=== PATIENT | male | born 1940 | race Caucasian/White ===

== ENCOUNTER 2017-06-10 06:10 | Day surgery (SDC) | payer MEDICARE ==
[~2017-06-10 06:10] MED LIST: Buffered Lidocaine 0.9% SYRIN* 5 ML/SYR SYRINGE INTRADERM ONE; NS 0.9% 1000 ML* 1,000 ML IV SCH
[2017-06-10] MEDS ORDERED: ceFAZolin 2 GM PREMIX (*) 2 GM/50 ML BAG IVPB ONE (06:54)
[2017-06-10] MEDS ORDERED: Methylene Blue 0.5 %* 50 MG/10 ML AMP IV ONE (07:17)
[2017-06-10] MEDS ORDERED: Lidocain 1% EPI 1:100,000 * 30 ML MDV ONE ×2 (07:17→07:19)
[2017-06-10] MEDS ORDERED: Mineral Oil Sterile, TOPICAL* 25 ML BTL ONE (07:18)
[2017-06-10] MEDS ORDERED: Bupivacaine 0.25% SDV* 30 ML ONE (07:19)
[2017-06-10] MEDS ORDERED: Midazolam* 1 MG/ML 2 ML VIAL (2 MG) ONE ×2 (07:21→07:43)
[2017-06-10] MEDS ORDERED: Lidocaine 2% PF * 5 ML VIAL ONE (07:44)
[2017-06-10] MEDS ORDERED: Propofol* 10 MG/ML 20 ML BTL IV PUSH ONE (07:44)
[2017-06-10] MEDS ORDERED: Famotidine IV* 10 MG/ML 2 ML (20 mg) ONE (07:44)
[2017-06-10] MEDS ORDERED: Naloxone* 0.4 MG/ML 1 ML VIAL IV PRN (08:45)
[2017-06-10] MEDS ORDERED: DiMENhydriNATE IV* 50 MG/ML VIAL IV PUSH PRN (08:45)
[2017-06-10] MEDS ORDERED: Acetaminophen TAB* 325 MG PO PRN (08:45)
[2017-06-10] MEDS ORDERED: HYDROcodone/ACETAMIN 5-325 MG* 1 TAB PO PRN ×2 (08:45)
[2017-06-10 09:48] VITALS: BP 110/69
== END 2017-06-10 09:50 | disposition home or self-care (01) ==
LOC: OR 06:10
PROVIDERS: ATTEND Plastic Surgery
DX: C44.41 Basal cell carcinoma of skin of scalp and neck (principal); Z79.01 Long term (current) use of anticoagulants; I73.9 Peripheral vascular disease, unspecified; Z85.46 Personal history of malignant neoplasm of prostate; I10 Essential (primary) hypertension; I48.2 Chronic atrial fibrillation; Z87.891 Personal history of nicotine dependence; Z85.828 Personal history of other malignant neoplasm of skin
CPT/HCPCS: 88305; 88331; 88332; A9270-GY; J0690; J2250; J2704

== ENCOUNTER → 2017-08-18 07:43 | Day surgery (SDC) | payer MEDICARE ==
[~2017-08-18 07:43] MED LIST changes: +Acetaminophen TAB* 325 MG PO PRN; -Buffered Lidocaine 0.9% SYRIN* 5 ML/SYR SYRINGE INTRADERM ONE; +Heparin 2 UNITS/ML IVPREMIX* 2,000 ML IV ONE; +Heparin(*) 1000 UNIT/ML 10 ML VIAL CATH LAB IV ONE; +Iodixanol* (CONTRAST) 320 MG/ML 100 ML SDV ONE; +Lidocaine 1% INJ* 10 MG/ML 30 ML SDV ONE; +Midazolam* 1 MG/ML 10 ML VIAL (10 MG) ONE; +VERAPAMIL 2.5 MG/ML 2 ML VIAL ** 5 mg/2 ml ONE; +fentaNYL* 50 MCG/ML 2 ML VIAL (100 MCG VIAL) ONE; +nitroGLYCERIN DRIP* 25,000 MCG/250 ML BTL ONE
[2017-08-18 09:15] LABS: ABS Basophils 0 10^3/ul (0-0.2); ABS Eosinophils 0.1 10^3/ul (0-0.6); ABS Lymphocytes 1.3 10^3/ul (1.0-4.8); ABS Monocytes 0.9 10^3/ul (0-0.8); ABS Neutrophils 1.5 10^3/ul (1.5-7.7); ABS Nucleated RBC 0 10^3/ul; Eosinophil % 1.7 % (0-6); Hematocrit 46 % (42-52); Hemoglobin 15.5 g/dl (14.0-18.0); Mean Corpuscular HGB Conc 34 g/dl (31-36); Mean Corpuscular Hemoglobin 31 pg (27-31); Mean Corpuscular Volume 94 fL (80-94); Mean Platelet Volume 7.7 um3 (7.4-10.4); Nucleated Red Blood Cells % 0.1; Platelet Count 138 10^3/ul (150-450); Red Blood Count 4.94 10^6/ul (4.0-5.4); Red Cell Distribution Width 15 % (10.5-15); White Blood Count 3.8 10^3/ul (3.5-10.8)
[2017-08-18 09:23] LABS: INR 1.05 (0.77-1.02)
[2017-08-18 09:34] LABS: EGFR Non-African American 54.7 (>60)
[2017-08-18 13:03] VITALS: BP 112/62
--- NOTE | 2017-08-19 13:15 | CATH ---
CC: Dr. Guzman. CARDIAC CATHETERIZATION NOTE: DATE OF PROCEDURE: 08/18/17 PROCEDURE: Cardiac catheterization including coronary angiography, left heart catheterization, left ventriculogram. INDICATION: Ventricular tachycardia. The patient is a 77-year-old gentleman with a history of chronic atrial fibrillation who has frequent ventricular ectopy and runs of ventricular tachycardia. The patient was seen by an custom van converter and was recommended for a cardiac catheterization to rule out coronary artery disease. DESCRIPTION OF PROCEDURE: The patient was brought to the cardiac catheterization lab in a fasting state. Informed consent had been obtained prior to the procedure. All labs were reviewed. The patient had been off his Coumadin for 3 days. The patient was placed supine in the catheterization table. His right wrist area was prepped and draped in the usual fashion. 1% lidocaine was used for local anesthesia. Using a Seldinger technique, the radial artery was entered and a guidewire was placed. Over the guidewire, a 6- Latvian hydrophilic sheath was placed. The patient had an infusion of heparin, nitroglycerin, and verapamil. The patient underwent cardiac catheterization using a 6-Latvian TIG catheter and a 5- Latvian angled pigtail catheter. At the end of the procedure, all sheaths and catheters were removed. The patient tolerated the procedure well, no complications. A total of 85 cc of Visipaque dye was used. A total of 8.4 minutes of fluoro time was used. FINDINGS: 1. Left main artery: The left main was normal in size. It bifurcated into the LAD and circumflex. There was no evidence of stenosis. 2. Left anterior descending artery: The LAD was normal in size. It gave off 3 diagonal vessels. There is no evidence of stenosis. 3. Left circumflex artery: The circumflex artery was normal in size. It gave off 1 large obtuse marginal branch. There was no evidence of stenosis. 4. Right coronary artery: The RCA was a large, dominant vessel, it gave off PDA, there was no evidence of stenosis. 5. Left ventriculogram: The left ventricle was normal in size and systolic function. Estimated ejection fraction 65%. There was no focal wall motion abnormalities. There was 3+ mitral regurgitation, but I think this was catheter induced mitral valve regurgitation. The mitral valve and ascending aorta were normal. IMPRESSION: 1. Normal LV size and systolic function. 2. A 3+ mitral regurgitation that was likely catheter induced MR. 3. Normal coronary arteries. 4. Successful radial cardiac catheterization. RECOMMENDATIONS: The patient will continue on maximum medical therapy. He will follow up with Dr. Guzman. [id number]/[facility] #: [id number] CICI
== END | disposition home or self-care (01) ==
LOC: CHICATH 07:43
PROVIDERS: ATTEND Specialist
DX: I34.0 Nonrheumatic mitral (valve) insufficiency (principal); I47.2 Ventricular tachycardia; I48.91 Unspecified atrial fibrillation; Z79.01 Long term (current) use of anticoagulants; Z79.899 Other long term (current) drug therapy
CPT/HCPCS: 36415; 80053; 85025; 85610; 93458; 99156; 99157; J1644; J2250; J3010

== ENCOUNTER 2018-06-17 06:52 | Day surgery (SDC) | payer MEDICARE ==
--- NOTE | 2018-05-22 10:12 | HP ---
CC: Dr. Kemi Myers * HISTORY AND PHYSICAL: DATE OF PLANNED ADMISSION AND SURGERY: 06/17/18 HISTORY OF PRESENT ILLNESS: Mr. Lazcano is a 77-year-old while male who is admitted with recurrent episodes of gross hematuria, abnormalities of the right ureter on CT, for cystoscopy, bilateral retrograde pyelographies, possible bilateral ureteroscopies and bilateral ureteral stents insertion. I had followed Mr. Lazcano in the past because of history of prostate carcinoma. In 2002, he underwent an uncomplicated radical retropubic prostatectomy. The pathology showed stage II [place] 6 disease. He has done very well without any evidence of recurrent disease and his PSA has been undetectable. I last saw him in my office for his follow up in 2003. The patient had been followed by Dr. Myers, who had been obtaining periodic PSA's and they have remained undetectable. For the last 2 years, the patient has been having on and off episodes of right flank pain. He assumed they were caused by renal calculi and the episodes were not severe enough for him to seek any medical attention. About 3 months ago, he started having on and off episodes of gross hematuria, they were mostly painless; however, some of them were associated with mild right flank pain. He did not have any episodes of acute renal colic. The episodes of hematuria were not associated with any changes in his voiding or symptoms of urinary tract infections. The patient has been on anticoagulation with warfarin because of atrial fibrillation. I saw him in my office recently for work up of the gross hematuria. KUB showed bilateral small renal calculi. CT urogram showed small nonobstructing bilateral renal calculi. There was a moderate degree of thickening of the distal right ureter, but no filling defect noted. There was also slight dilatation of the distal left ureter, but this could have been peristalsis. There were no obvious abnormal filling defects in the collecting systems or in the ureters and no parenchymal renal masses. The patient then had an office cystoscopy, which was normal showing no suspicious bladder lesions. Because of the above history and findings, and the abnormal appearing ureters on CT urogram, he is admitted for the above procedure. PAST MEDICAL HISTORY: The patient has atrial fibrillation for which he is maintained on warfarin and on metoprolol 50 mg twice a day. 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 He has not had any embolic phenomena. In August 2017, he underwent cardiac catheterization, showing no coronary artery disease. I am including the last note from his livestock farm manager, Dr. Guzman. The patient had gone off the warfarin in the past for minor surgeries. He is hypertensive, maintained on lisinopril-HCTZ 20-12.5 mg daily. He has a chronic back pain and occasionally takes hydrocodone as needed. He was a chronic heavy smoker of 2 packs per day for a total of 40 years and he stopped in 1998. Alcohol. The patient consumes about 3 glasses of wine per day. He denies any allergies to medications. He denies any shortness of breath and seems to have good exercise tolerance. FAMILY HISTORY: Negative. PHYSICAL EXAMINATION GENERAL: He is a pleasant healthy-looking white male who looks good for his age. VITAL SIGNS: Blood pressure 140/80, pulse of 60. HEART: Regular and rhythmic. No murmurs. LUNGS: Clear. ABDOMEN: Soft. No masses, no tenderness, and no CVA tenderness. EXTERNAL GENITALIA: Normal. IMPRESSION: 1. Recurrent episodes of gross hematuria in a patient on warfarin for atrial fibrillation, with past history of heavy chronic smoking, with negative cystoscopy and CT Urogram showing abnormalities mostly in the distal right ureter, possibly in the left distal ureter. 2. Non-obstructing bilateral renal calculi. 3. Status post radical prostatectomy for prostate carcinoma with good result and no evidence of recurrent disease. 4. Hypertension, atrial fibrillation. PLAN: Plan is for cystoscopy, bilateral retrograde pyelographies, possible bilateral ureteroscopies, and stents insertion. I discussed the above plans in detail with the patient. All his questions were answered. [id number]/[facility] #: [id number] CICI
[~2018-06-17 06:52] MED LIST changes: -Acetaminophen TAB* 325 MG PO PRN; +Buffered Lidocaine 1% SYRIN* 1 ML/SYRINGE INTRADERM ONE; +Dexamethasone IV* 4 MG/ML 1 ML (4 MG) IV SLOW PU ONE; +Famotidine TAB* 20 MG PO ONE; -Heparin 2 UNITS/ML IVPREMIX* 2,000 ML IV ONE; -Heparin(*) 1000 UNIT/ML 10 ML VIAL CATH LAB IV ONE; -Iodixanol* (CONTRAST) 320 MG/ML 100 ML SDV ONE; +Lactated Ringers 1000 ML Bag* 1,000 ML IV SCH; -Lidocaine 1% INJ* 10 MG/ML 30 ML SDV ONE; -Midazolam* 1 MG/ML 10 ML VIAL (10 MG) ONE; -NS 0.9% 1000 ML* 1,000 ML IV SCH; -VERAPAMIL 2.5 MG/ML 2 ML VIAL ** 5 mg/2 ml ONE; -fentaNYL* 50 MCG/ML 2 ML VIAL (100 MCG VIAL) ONE; -nitroGLYCERIN DRIP* 25,000 MCG/250 ML BTL ONE
[2018-06-17] MEDS ORDERED: Famotidine TAB* 20 MG ONE (07:30)
[2018-06-17] MEDS ORDERED: Dexamethasone IV* 4 MG/ML 1 ML (4 MG) ONE (07:30)
[2018-06-17] MEDS ORDERED: cefTRIAXone(*) 2 GM ADDV.VIAL IVPB ONE (07:30)
[2018-06-17] MEDS ORDERED: Midazolam* 1 MG/ML 2 ML VIAL (2 MG) ONE (08:32)
[2018-06-17] MEDS ORDERED: Lidocaine 2% PF * 5 ML VIAL ONE (08:32)
[2018-06-17] MEDS ORDERED: fentaNYL* 50 MCG/ML 2 ML VIAL (100 MCG VIAL) ONE (08:32)
[2018-06-17] MEDS ORDERED: Propofol* 10 MG/ML 20 ML BTL ONE (08:32)
[2018-06-17] MEDS ORDERED: Iohexol 180 (CONTRAST) 10 ML SDV IV ONE (09:22)
[2018-06-17] MEDS ORDERED: EPHEDrine (Pressors)* 50 MG/ML VIAL ONE (09:58)
[2018-06-17] MEDS ORDERED: Phenylephrine 40 MCG/ML SYRINGE ONE (09:58)
[2018-06-17] MEDS ORDERED: Ondansetron INJ* 2 MG/ML VIAL ONE (10:09)
[2018-06-17 11:25] VITALS: BP 140/97
--- NOTE | 2018-06-17 13:38 | OP ---
CC: Dr. Kemi Myers OPERATIVE REPORT: DATE OF OPERATION: 06/17/18 DATE OF : 36 SURGEON: Jak Apodaca MD ANESTHESIOLOGIST: Dr. Alejo. ANESTHESIA: General. PRE-OP DIAGNOSES: 1. Recurrent episodes of gross hematuria. 2. Rule out distal right ureteral tumor. POST-OP DIAGNOSIS: Distal right ureteral calculus (7 mm). OPERATIVE PROCEDURE: 1. Cystoscopy. 2. Bilateral retrograde pyelographies. 3. Washings from distal right ureter. 4. Right ureteroscopy, laser lithotripsy, and right ureteral stent insertion (6- Brazilian). INDICATION FOR PROCEDURE: Mr. Lazcano is a 77-year-old male who had undergone radical prostatectomy for prostate carcinoma in 2002. Over the last 2 years, the patient has been having on and off episo abram of right flank pain, which the patient attributed to episodes of passage of renal calculi. Two t o 3 months ago, he started having recurrent episodes of gross painless hematuria, some of them associ ated with mild right flank pain. The patient gives history of chronic heavy smoking. Office cystosc opy was negative. CT urogram showed a thickening of the distal right ureter suspicious for a uretera l lesion. There were bilateral small renal calculi noted. No ureteral calculus was seen. Because of the above history and finding, the patient was admitted for the above procedures. PATHOLOGY: At cystoscopy, the penile and bulbar urethrae looked normal. 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 The bladder neck was open without any contracture. Examination of the bladder showed normal mucosa. There were no suspicious bladder lesions seen. No calculi or diverticula were noted. The ureteral orifices looked normal. Upon left retrograde pyelography, there was no evidence of any dilatation of the left ureter or any a bnormal filling defects in the ureter or in the collecting system. Upon right retrograde pyelography, there was partial narrowing of the ureter about 4 cm above the lev el of the orifice. This is the same area that looked thickened on the CT urogram. There was mild di latation of the ureter and of the collecting system proximal to that area. No abnormal filling defec ts were noted in the ureter or the collecting systems. Upon right ureteroscopy, there was a 7-mm calculus noted in the distal ureter at the site of the abov e described partial narrowing and edema. The calculus had the gross appearance of a calcium oxylate stone. Ureteroscopy into the proximal ureter showed no pathology. DESCRIPTION OF PROCEDURE: After successful general anesthesia, the patient was placed in the lithoto my position and was prepped and draped for cystoscopy. Cystoscopy was performed. The bladder was car efully inspected and the above findings were noted. A flexible tip guidewire was then introduced into the left ureteral orifice. A size 5-Brazilian open-en ded catheter was fed on top of the guidewire and positioned in the distal ureter. Retrograde pyelogr aphy was then performed demonstrating the whole ureter and collecting system and showing no abnormali ties. Attention was then directed to the right side. Retrograde pyelography was then performed and the abo ve findings were noted. The open-ended catheter was then positioned in the distal ureter at the site of the ureteral narrowin g and washings were obtained from that area and sent for cytology. The guidewire was then reintroduced and positioned inside the renal pelvis. A size 6.5 semirigid ure teroscope was introduced inside the bladder. A flexible tip basket was introduced through the port o f the ureteroscope and its flexible tip was then introduced into the right ureter alongside the guide wire. That allowed the atraumatic introduction of the ureteroscope into the ureter. The ureteroscop e was advanced and the calculus was identified. The calculus was then engaged in the basket to avoid its proximal migration. A size 550 micron laser fiber was then introduced into the other port of th e ureteroscope and the stone was broken in several fragments using the laser energy. Care was taken not to damage the ureteral wall. The stone fragments were then extracted with the basket. Ureteroscopy showed no residual stone fragm ents and then intact ureteral wall. Right retrograde pyelography was again performed and the size 6-Brazilian stent was placed with the prox imal end coiling in the renal pelvis and the distal end coiling inside the bladder. There was good d rainage of contrast from the kidney and no extravasation. The patient tolerated the procedure well and left the operating room in good condition. The plan is to leave the stent in place for about 1 week. It will be removed in the office under loc al anesthesia. The cause of the recurrent episodes of gross hematuria and of the abnormal findings on the CT urogram can all be explained on the basis of the right ureteral calculus. [id number]/[facility] #: [id number]
== END 2018-06-17 11:26 | disposition home or self-care (01) ==
LOC: OR 06:52
PROVIDERS: ATTEND Urology
DX: N20.1 Calculus of ureter (principal); R31.0 Gross hematuria; Z85.46 Personal history of malignant neoplasm of prostate; I48.91 Unspecified atrial fibrillation; Z79.01 Long term (current) use of anticoagulants; I10 Essential (primary) hypertension; G47.33 Obstructive sleep apnea (adult) (pediatric); K21.9 Gastro-esophageal reflux disease without esophagitis; M19.90 Unspecified osteoarthritis, unspecified site
CPT/HCPCS: 74420; 82365; 88112; 88300; A9270-GY; C1876; J0696; J1100; J2250; J2405; J2704; J3010